=== PATIENT | female | born 1980 | race Caucasian/White ===

== ENCOUNTER 2018-07-11 09:55 | Emergency (ER) | payer OTHER ==
[~2018-07-11] VITALS: Ht 162.6 cm; Wt 60.3 kg
[2018-07-11] MEDS ORDERED: PROVERA10 MG PO (12:19)
== END 2018-07-11 12:24 | disposition home or self-care (01) ==
LOC: ED 09:55
DX: N92.0 Excessive and frequent menstruation with regular cycle (principal)
CPT/HCPCS: 76830; 76856; 80048; 84702; 85025; 86850; 86900; 86901; 96360; 96361; 99284; J7030

== ENCOUNTER 2019-01-01 06:00 | Day surgery (SDC) | payer OTHER ==
[~2019-01-01] VITALS: Ht 162.6 cm; Wt 62.6 kg
[~2019-01-01 06:00] MED LIST: CYCLOBENZAPRINE10 MG PO; PROVERA10 MG PO
--- NOTE | 2019-01-01 11:14 | NUR ---
01/01/19 1114 Sheets,Josy 1109 PT ARRIVED TO PACU, PT REACTIVE TO TACTILE STIMULI. PT ON RA AND RESP EVEN AND UNLABORED.
--- NOTE | 2019-01-01 12:04 | NUR ---
ICED WATER GIVEN. CALL LIGHT W/IN REACH. PATIENT DRINKS WATER AND TOLERATES THAT WELL. SPOUSE @ BS.
--- NOTE | 2019-01-01 13:07 | NUR ---
PUDDING AND CRACKERS ARE GIVEN. MORE ICED WATER GIVEN (200 ML DRANK). SPOUSE @ BS.
--- NOTE | 2019-01-01 14:05 | NUR ---
PATIENT NOTICES BLOODY DRAINAGE ON HER GOWN. ABDOMEN VISUALIZED AND NO SIGN OF BLEEDING. UMBILICUS HAS BLOODY DRAINAGE BENEATH THE BANDAID. GOWN IS CHANGED. FAMILY @ BS. PATIENT REPORTS IMPROVEMENT IN PAIN. CALL LIGHT W/IN REACH.
--- NOTE | 2019-01-01 15:06 | NUR ---
PT REPORTS FEELING LIKE SHE NEEDS TO GET UP AND USE THE RESTROOM. SHE STILL HAS A YBARRA IN PLACE.
[2019-01-01] MEDS ORDERED: MOTRIN IB200 MG PO (15:21)
[2019-01-01] MEDS ORDERED: ONDANSETRON ODT8 MG PO (15:22)
[2019-01-01] MEDS ORDERED: PERCOCET 5-3251 EACH PO (15:22)
--- NOTE | 2019-01-01 16:16 | NUR ---
LE 1540: PATIENT STANDS AT THE BEDSIDE AND DENIES DIZZINESS AND WALKS AROUND ROOM. PATIENT REPORTS "I FEEL SURPRISINGLY GOOD". PATIENT REPORTS "I WOULD LIKE TO GO HOME". DC INSTRUCTIONS ARE GIVEN IN PRESENCE OF SPOUSE. LEG BAG IS GIVEN AND PATIENT AND SPOUSE ARE INSTRUCTED ON HOW TO CHANGE THE OVERNIGHT BAG TO A LEG BAG. KEEPING THE OVERNIGHT BAG DEPENDENT WAS REITERATED. PATIENT VERBALIZES UNDERSTANDING. GAUZE AND TAPE SENT WITH PATIENT TO REINFORCE HER ABDOMINAL INCISIONS IF NECESSARY. PATIENT GETTING HERSELF DRESSED. PATIENT TRANSFERS SELF TO WELL.
--- NOTE | 2019-01-08 09:02 | OR ---
[facility] [address], [place] [address] Signed DATE OF OPERATION: 01/01/2019 SURGEON: Shavon Blunt MD CAMPUS SECURITY OFFICER: Elder Perez MD PREOPERATIVE DIAGNOSES: Menorrhagia with regular cycle, dysmenorrhea and deep dyspareunia. POSTOPERATIVE DIAGNOSES: Menorrhagia with regular cycle, dysmenorrhea and deep dyspareunia with pelvic adhesions. PROCEDURES PERFORMED: Total laparoscopic hysterectomy, bilateral salpingectomy, repair of cystotomy, and cystoscopy. ANESTHESIA: General ET. ESTIMATED BLOOD LOSS: 50 mL. DRAINS: Julian catheter. INDICATIONS AND FINDINGS: The patient is a 38-year-old female, 4, para 4 who has been having worsening dysmenorrhea as well as menorrhagia and deep dyspareunia. She has also had some right lower quadrant pain which has been worsening. She has already undergone prior tubal ligation. She desired definitive treatment. Of note, she has had two prior sections. At the time of surgery, exam under anesthesia was normal. At the time of laparoscopy, there was quite a bit of scarring from her prior sections. There was also evidence of prior tubal ligation. The ovaries otherwise appeared normal as did the cul-de-sac. DESCRIPTION OF PROCEDURE: The patient was prepped and draped in the dorsal lithotomy position. An open-sided speculum was placed. The anterior lip of the cervix was visualized and grasped with a single-tooth tenaculum. The cavity was sounded to 8.5 cm. The endocervical canal was Electronically Signed By: SHAVON BLUNT MD 01/08/19 0902 PATIENT NAME: JOLENE NATARAJAN OPERATIVE REPORT DATE OF : 82 REPORT #: [id number] PHYSICIAN: SHAVON BLUNT MD PCP: AMADOR ALEJANDRO DO REPORT IS CONFIDENTIAL AND NOT TO BE RELEASED WITHOUT AUTHORIZATION [facility] [address] [place], [place] [address] Signed then dilated and the VCare cannula was placed. The balloon inflated at the fundus. The tenaculum and weighted speculum removed and the cup was fitted over the cervix and the locking cup fitted into place. Attention was then directed above. The infraumbilical area was injected with 0.5% Marcaine plain. An incision was made with a knife and then each layer was serially elevated and incised until the fascia was opened and identified. Stay sutures were placed. The peritoneum was opened bluntly. The Eloy cannula was then placed and tied in place. Following this, the pelvis was visualized and it was felt the planned procedure was appropriate. The secondary ports were placed slightly lower than the umbilicus and far laterally. Each of these was transilluminated, injected with the Marcaine, incision made with a knife and the trocars were placed under direct vision. The left hand side was a 5 mm port and the right was the expanding port. Following this, the [place] LigaSure device was used to remove the distal portion of the tube on the patient's left side. Following this, the remaining tube, round ligament and utero-ovarian pedicle were serially coagulated and divided. The anterior leaf of the peritoneum was then incised somewhat to allow a partial bladder flap. There was quite a bit of scarring anteriorly. The peritoneum was also taken down posteriorly. Following this, the uterine vessels were skeletonized and coagulated multiple times and then divided. Further dissection was done anteriorly, but because of the scarring, the bladder was then filled with sterile milk to aid in delineating this. Attention was then directed to the patient's right side. The tube distally was excised and removed. The remaining tube, round ligament and utero-ovarian pedicle serially coagulated and divided. The anterior leaf of the peritoneum was incised allowing for a partial bladder flap. The peritoneum was taken down posteriorly as well. The uterine vessels were skeletonized and coagulated multiple times. These were then divided. Further dissection was done posteriorly. Further dissection was then done anteriorly allowing the bladder to come down, but at this point there was some leakage of the formula noted and there appeared to be a hole at the dome of the bladder at this point. Following this, the decision was made to continue with the hysterectomy and repair this following removal of the uterus. The cup could be seen then circumferentially. The Sonicision was then used to excise the specimen. This was begun posteriorly and wrapped around the patient's left side anteriorly and subsequently posteriorly wrapped around the right side and anteriorly. At this point, the specimen could be removed from the vagina. The vagina was packed with a glove with a single lap tape inside. This allowed for the pneumoperitoneum to reaccumulate. Attention was redirected in the abdomen and this was copiously irrigated and inspected. Decision was made to proceed with closure of the vaginal cuff. This was done using the Endo Stitch, taking care to incorporate both the anterior and posterior portions of the vaginal mucosa. This was run from the patient's right uterosacral ligament across to the left and back to the center. Following this, the bladder was re-evaluated and there was seen to be three small holes in the dome. These were repaired separately initially with a running suture of 2-0 chromic. Following closure of these initial holes, a secondary closure was done with a running suture of the 2-0 chromic covering all of these different areas with the same Electronically Signed By: SHAVON BLUNT MD 01/08/19 0902 PATIENT NAME: JOLENE NATARAJAN OPERATIVE REPORT DATE OF : 82 REPORT #: [id number] PHYSICIAN: SHAVON BLUNT MD PCP: AMADOR ALEJANDRO DO REPORT IS CONFIDENTIAL AND NOT TO BE RELEASED WITHOUT AUTHORIZATION [facility] [address] [place], [place] [address] Signed stitch. This was an imbricating type stitch. Following this, the bladder was filled from below with more formula as a lot of the original amount had come out of the bladder during the repairs and there was no evidence of any leaking of any formula through the repair. Following this, cystoscopy was done. The patient had received IV fluorescein as well. The formula was drained as much as possible from the bladder that was rinsed a few times to remove the remaining formula. Initially, the 30-degree scope was used and the patient's right ureter was immediately identified and seen to be freely excreting the fluorescein. The dome of the bladder had evidence of the repair with no evidence of any bleeding. The patient's left ureter ureteral orifice was unable to be seen with the 30-degree scope and the 70-degree scope was then used. At this point, free flow of the fluorescein-stained urine was seen. Following this, the bladder was drained and the Julian catheter replaced. Attention was directed above and the abdomen was again irrigated and there was no evidence of any fluorescein within the abdomen. Evicel was dribbled over the vaginal cuff to aid in healing and hemostasis. The instruments were removed from the abdomen after allowing as much CO2 as possible to escape. The fascial incision of the umbilicus was reidentified and closed with a running suture of 0 Vicryl. The skin incisions were closed with subcuticular sutures of 3-0 Vicryl Rapide. All sponge and needle counts were correct. The patient tolerated procedure well. The vaginal pack was removed at the time of cystoscopy. The patient was then taken to the recovery room in good condition. MD ALISSA WolfW/NIL /[id number] cc: MD Amador Larry DO Copies: ELDER PEREZ MD, AARON DO ~ Electronically Signed By: SHAVON BLUNT MD 01/08/19 0902 PATIENT NAME: JOLENE NATARAJAN OPERATIVE REPORT DATE OF : 82 REPORT #: [id number] PHYSICIAN: SHAVON BLUNT MD PCP: AMADOR ALEJANDRO DO REPORT IS CONFIDENTIAL AND NOT TO BE RELEASED WITHOUT AUTHORIZATION
== END 2019-01-01 15:55 | disposition home or self-care (01) ==
LOC: DS 06:00
PROVIDERS: Obstetrics & Gynecology
PROC: 0UT94ZZ Resection of Uterus, Percutaneous Endoscopic Approach (ICD-10-PCS; principal; 2019-01-01 06:45)
PROC: 0UT74ZZ Resection of Bilateral Fallopian Tubes, Percutaneous Endoscopic Approach (ICD-10-PCS; 2019-01-01 06:45)
DX: N87.9 Dysplasia of cervix uteri, unspecified (principal); N83.8 Other noninflammatory disorders of ovary, fallopian tube and broad ligament; N92.0 Excessive and frequent menstruation with regular cycle; N94.5 Secondary dysmenorrhea; N94.12 Deep dyspareunia; N73.6 Female pelvic peritoneal adhesions (postinfective); Z79.899 Other long term (current) drug therapy; Z98.51 Tubal ligation status
CPT/HCPCS: 00840; J0131; J0694; J1100; J1644; J1885; J2250; J2270; J2405; J2550; J2704; J2765; J3010; J3475; J7120

== ENCOUNTER 2020-10-19 13:40 | Emergency (ER) | payer OTHER ==
[~2020-10-19] VITALS: Ht 162.6 cm; Wt 68.0 kg
[~2020-10-19 13:40] MED LIST changes: +BACTRIM DS TAB1 EACH PO; +MOTRIN IB200 MG PO; +ONDANSETRON ODT8 MG PO; +PENICILLIN V P500 MG PO; +PERCOCET 5-3251 EACH PO
[2020-10-19] MEDS ORDERED: ZYRTEC10 M3 PO (14:57)
== END 2020-10-19 18:29 | disposition home or self-care (01) ==
LOC: ED 13:40
DX: R32 Unspecified urinary incontinence (principal); M54.9 Dorsalgia, unspecified; G89.29 Other chronic pain; Z88.8 Allergy status to other drugs, medicaments and biological substances
CPT/HCPCS: 51798; 81001; 99283-25

== ENCOUNTER 2020-10-20 09:27 | Emergency (ER) | payer OTHER ==
[~2020-10-20] VITALS: Ht 162.6 cm; Wt 68.0 kg
[~2020-10-20 09:27] MED LIST changes: +ZYRTEC10 M3 PO
--- OUTSIDE RECORDS SUMMARY | 2020-10-20 09:30 | XMS ---
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 E.Abhi VISIT COUNT (12 MO.) 1 [facility] [address] [place] [address] TOTAL 3 NOTE: Visits indicate total known visits. ED/UCC VISIT TRACKING (12 MO.) 10/20/2020 09:28 [facility] TYPE: Emergency COMPLAINT: - BACK PAIN NON INJURY 10/19/2020 13:41 [facility] [place] TYPE: Emergency COMPLAINT: - LOWER BACK PAIN 11/14/2019 22:22 [facility] Keren JIANG TYPE: Emergency DIAGNOSES: - Flank Pain; Nausea - Unspecified ovarian cyst, right side - Abdominal Pain INPATIENT VISIT TRACKING (12 MO.) No inpatient visits to display in this time frame [email or web address]
== END 2020-10-20 11:51 | disposition home or self-care (01) ==
LOC: ED 09:27
DX: R32 Unspecified urinary incontinence (principal); Z88.8 Allergy status to other drugs, medicaments and biological substances
CPT/HCPCS: 72148; 99283-25

== ENCOUNTER 2022-08-18 05:45 | Day surgery (SDC) | payer OTHER ==
[~2022-08-18] VITALS: Ht 162.6 cm; Wt 76.4 kg
[~2022-08-18 05:45] MED LIST changes: +GABAPENTIN300 MG PO; +HYDROCODON-ACE1 EA10 PO; +HYDROCODON-ACE1 EA11 PO; +ZOLOFT100 MG PO
[2022-08-18] MEDS ORDERED: HYDROCODON-ACE1 EA10 PO (07:44)
--- NOTE | 2022-08-18 07:49 | NUR ---
08/18/22 0749 Dee Dee Forte 0739- PT ARRIVES TO PACU. REACTIVE TO STIMULI. OXYGEN SAT LOW 90'S ON RA. PT ENCOURAGED TO TAKE DEEP BREATHS. PT IS ABLE TO DO THIS AND OXYGEN SAT IMPROVED. RESP EVEN AND UNLABORED. PT'S RIGHT ANKLE ELEVATED ON A PILLOW AND ICE PACK APPLIED WITH DRESSING IN BETWEEN SKIN AND DRESSING. 0744- PT REPORTS SHE IS FEELING NAUSEOUS. PT'S HEAD OF BED ELEVATED SLIGHTLY. FEATHER SHAPER NOTIFIED. NEW ORDER RECEIVED. 0747- PT REPORTS HER NAUSEA IS GETTING BETTER. PT REQUESTING SOME APPLE JUICE. JUICE PROVIDED. EDUCATED TO TAKE SMALL SIPS.
--- NOTE | 2022-08-18 11:00 | NUR ---
PT TAKEN TO SURGERY, CONNECTED WITH WAITING IN RM. NO ISSUES OR NEEDS AT THIS TIME. GAVE BLESSING AND WILL FOLLOW NEEDED
--- NOTE | 2022-08-19 13:24 | OR ---
[facility] [address] [place], [place] [address] Signed DATE OF OPERATION: 08/18/2022 SURGEON: Shannan Richter MD PREOPERATIVE DIAGNOSIS: Painful hardware, right ankle. POSTOPERATIVE DIAGNOSIS: Painful hardware, right ankle. PROCEDURE PERFORMED: Removal of hardware deep. OBEDIENCE TRAINER: None. ANESTHESIA: MAC with local. BLOOD LOSS: Minimal. BRIEF HISTORY: Jolene is a 41-year-old, who had a bimalleolar ankle fracture that underwent uneventful ORIF, however, the screws were quite prominent under skin, she wished to have them removed. Risks and benefits of removal of the screws only were discussed with her and she elected to proceed. DESCRIPTION OF PROCEDURE: Once consent was obtained, she was taken to the operating room. After adequate anesthesia, she was placed on the operating table. All downside pressure points were well padded. The leg was prepped and draped in a standard sterile fashion. The prior incisions were marked out, the lateral incision was incised, carried down through skin and subcutaneous tissue. Both screws in the FibuLock were readily palpable and were dissected free of overlying scar tissue. Both screws were then removed quite easily. Under image intensifier guidance, we did find the button for the tightrope, and this was removed after cutting the end of the sutures off. This was sitting posteriorly along the peroneum, was causing some irritation of the peroneal tendons. The wound was copiously irrigated and closed with 3-0 nylon. The attention was turned to the medial side, where the previous incision was incised and taken directly down to the screw head Electronically Signed By: SHANNAN RICHTER MD 08/19/22 1324 PATIENT NAME: JOLENE NATARAJAN OPERATIVE REPORT DATE OF : 82 REPORT #: [id number] PHYSICIAN: SHANNAN RICHTER MD PCP: NO PRIMARY CARE PHYSICIAN REPORT IS CONFIDENTIAL AND NOT TO BE RELEASED WITHOUT AUTHORIZATION [facility] [address], [place] [address] Signed on the single screw in the medial malleolus. Skin was dissected free of soft tissue, was removed. The wound again was irrigated and then closed with 3-0 nylon. Wounds were dressed with Allevyn, ABD, and Bharath wrap. She tolerated the procedure well. All sponge, needle, and instrument counts were correct. Shannan Richter MD BA/MODL /[id number] Copies: ~ Electronically Signed By: SHANNAN RICHTER MD 08/19/22 1324 PATIENT NAME: JOLENE NATARAJAN OPERATIVE REPORT DATE OF : 82 REPORT #: [id number] PHYSICIAN: SHANNAN RICHTER MD PCP: NO PRIMARY CARE PHYSICIAN REPORT IS CONFIDENTIAL AND NOT TO BE RELEASED WITHOUT AUTHORIZATION
== END 2022-08-18 08:30 | disposition home or self-care (01) ==
LOC: DS 05:45
PROVIDERS: ATTEND Specialist
PROC: 0QPG04Z Removal of Internal Fixation Device from Right Tibia, Open Approach (ICD-10-PCS; principal; 2022-08-18 07:30)
DX: T84.84XA Pain due to internal orthopedic prosthetic devices, implants and grafts, initial encounter (principal); Y79.2 Prosthetic and other implants, materials and accessory orthopedic devices associated with adverse incidents
CPT/HCPCS: 73600; J0690; J1100; J1885; J2405; J2704; J3010; J7121